=== PATIENT | male | born 1945 | race Caucasian/White ===

== ENCOUNTER 2016-10-07 08:05 | Day surgery (SDC) | payer OTHER, MEDICARE ==
[2016-10-01 13:28] VITALS: BMI 21.1
[2016-10-07] MEDS ORDERED: PROPOFOL 20 ML ONE ×2 (08:09)
[2016-10-07 08:33] VITALS: TEMP 97.5
[2016-10-07 10:28] VITALS: BP 118/69; PULSE 52
--- NOTE | 2016-10-09 11:20 | PATH ---
Surgical Pathology Report Patient Name: BARI POLLACK [facility]. Rec. #: [id number] /Age/Gender: 1945 (Age: 71) / M Account: [id number] Location: [facility]-ENDOSCOPY Taken: 10/07/2016 Received: 10/07/2016 Reported: 10/08/2016 Physicians: Marcelo Hdz M.D. Specimen(s) Received BX ILEOCECAL VALVE Clinical History polyp Final Diagnosis ILEOCECAL VALVE, BIOPSY: COLONIC MUCOSA SHOWING SUBMUCOSAL ADIPOSE TISSUE, CONSISTENT WITH LIPOMA. Electronically Signed Radha Hutchison M.D. Gross Description Received in formalin, labeled "ileocecal valve" are 2 yellow burris, irregular portions of soft tissue measuring 0.3 and 0.5 cm. in greatest dimension. The specimens are submitted in toto in one cassette. /10/07/201610/07/2016
== END 2016-10-07 10:20 | disposition home or self-care (01) ==
LOC: FASU-ENDO 08:05
PROVIDERS: ATTEND Internal Medicine Gastroenterology
PROC: 0DBC8ZX Excision of Ileocecal Valve, Via Natural or Artificial Opening Endoscopic, Diagnostic (ICD-10-PCS; principal; 2016-10-07 09:21)
DX: Z86.010 Personal history of colon polyps (principal)
CPT/HCPCS: 88305-TC

== ENCOUNTER 2022-06-17 11:05 | Day surgery (SDC) | payer OTHER ==
[2022-06-13 13:57] VITALS: BMI 21.1
[2022-06-17 13:27] VITALS: BP 132/70; PULSE 60; RESP 18; TEMP 97.4
== END 2022-06-17 13:27 | disposition home or self-care (01) ==
LOC: FASU-ENDO 11:05
PROVIDERS: ATTEND Internal Medicine Gastroenterology
PROC: 0DBH8ZX Excision of Cecum, Via Natural or Artificial Opening Endoscopic, Diagnostic (ICD-10-PCS; principal; 2022-06-17 12:00)
DX: Z12.11 Encounter for screening for malignant neoplasm of colon (principal); D12.0 Benign neoplasm of cecum; Z86.010 Personal history of colon polyps
CPT/HCPCS: 88305-TC